=== PATIENT | female | born 1950 | race Caucasian/White ===

== ENCOUNTER 2019-08-12 14:09 | Emergency (ER) | payer MEDICAID ==
[~2019-08-12] VITALS: Ht 162.6 cm; Wt 80.3 kg
[2019-08-12 14:41] VITALS: BP 124/67
--- NOTE | 2019-08-12 14:57 | NUR ---
PATIENT AMBULATED WITH DAUGHTER TO WAIT AT [facility].
--- NOTE | 2019-08-12 15:30 | NUR ---
Dr. Shields evaluating pt at bedside
[2019-08-12] MEDS ORDERED: LORazepam 2 MG/ML VIAL IM ONE (15:40)
--- NOTE | 2019-08-12 16:06 | NUR ---
PT PRESENTS TO THE ED WITH C/O HEADACHE X 2 WEEKS. PT STATES PAIN IS "POUNDING" AND RATES PAIN 8/10 AT THIS TIME. PT STATES THAT SHE IS UNABLE TO SLEEP FOR 2 WEEKKS. PT DENIES N/V/D AT THIS TIME; SKIN IS PINK/WARM/DRY; PATIENT PRESENTS WITH A CLEAR SPEECH AND STEADY GAIT; PT DENIES ANY FEVER, CP, SOB, OR COUGH AT THIS TIME; PATIENT POSITIONED FOR COMFORT; HOB ELEVATED; BEDRAILS UP X1; BED DOWN IN LOWEST POSITION. FAMILY MEMBER AT BEDSIDE. HX: DM, HTN RX:METFORMIN, LISINOPRIL, LEVOTIYROXINE, JANUVIA, GLIPIZIDE, ATVORSTATIN, QUETI[place] NKA
--- NOTE | 2019-08-12 16:22 | NUR ---
PT RESTING IN BED WITH FAMILY MEMBER AT BEDSIDE WATCHING MOVIES ON CELL PHONE.
--- NOTE | 2019-08-12 16:25 | NUR ---
Dr. Shields is evaluating the patient at the bedside.
[2019-08-12 16:58] VITALS: BP 129/60
== END 2019-08-12 16:45 | disposition home or self-care (01) ==
LOC: MED 14:09
DX: G47.00 Insomnia, unspecified (principal); E11.9 Type 2 diabetes mellitus without complications; I10 Essential (primary) hypertension; E66.9 Obesity, unspecified
CPT/HCPCS: 81002; 81025; 96372; 99283; J2060

== ENCOUNTER 2022-03-14 10:29 | Emergency (ER) | payer MEDICAID ==
[~2022-03-14] VITALS: Ht 167.6 cm; Wt 82.6 kg
[2022-03-14 10:36] VITALS: BP 127/70
--- NOTE | 2022-03-14 10:42 | NUR ---
Patient ambulated with steady gait to bed 3.
--- NOTE | 2022-03-14 10:57 | NUR ---
PATIENT IN GOWN URINE OBTAINED. SIDE RAIL UP X1. PT GAIT STEADY
--- NOTE | 2022-03-14 11:48 | NUR ---
PT RESTING IN BED . SIDE RAILS UP X1 . RESP EVEN AND UNLABORED
[2022-03-14] MEDS ORDERED: DICYCLOMINE 20 MG/2 ML VIAL IM ONE (11:50)
--- NOTE | 2022-03-14 12:10 | NUR ---
LAB AT BEDSIDE-BLOOD SENT TO LAB
--- NOTE | 2022-03-14 12:11 | NUR ---
PT AMB TO [facility] W/O ASST-UA DONE
[2022-03-14 12:22] LABS: BASOPHILS % (AUTO) 0.7 % (0.0-2.0); EOSINOPHILS # (AUTO) 0.3 K/uL (0-0.4); EOSINOPHILS % (AUTO) 3.9 % (0.0-4.0); HEMATOCRIT 34.4 % (36-48); HEMOGLOBIN 11.2 g/dL (12.0-16.0); LYMPHOCYTES # (AUTO) 1.8 K/uL (2.5-16.5); LYMPHOCYTES % (AUTO) 27.8 % (20.5-51.1); MEAN CORPUSCULAR HEMOGLOBIN 29 pg (27-31); MEAN CORPUSCULAR HGB CONC 33 g/dL (33-37); MEAN CORPUSCULAR VOLUME 87.7 fL (80-94); MONOCYTES # (AUTO) 0.4 K/uL (0.8-1.0); MONOCYTES % (AUTO) 5.5 % (1.7-9.3); NEUTROPHILS % (AUTO) 62.1 % (42.2-75.2); PLATELET COUNT (AUTO) 179 K/uL (140-450); RED BLOOD CELL COUNT(AUTO) 3.92 MIL/uL (4.20-5.40); RED CELL DISTRIBUTION WIDTH 13.4 % (11.6-13.7); WHITE BLOOD COUNT (AUTO) 6.4 K/uL (4.8-10.8)
--- NOTE | 2022-03-14 12:30 | NUR ---
CRITICAL LAB GLUC [id number]
--- NOTE | 2022-03-14 12:43 | NUR ---
PT BACK FROM CT
--- NOTE | 2022-03-14 12:49 | NUR ---
DAUGHTER AT BEDSIDE
[2022-03-14 13:23] LABS: ALBUMIN 3.4 g/dL (3.4-5.0); ANION GAP 14.9 (8-16); ASPARTATE AMINOTRANSFERASE 34 U/L (15-37); CARBON DIOXIDE 25.4 mmol/L (21-32); CHLORIDE 103 mmol/L (98-107); LIPASE 184 U/L (73-393); POTASSIUM 4.3 mmol/L (3.5-5.1); SODIUM SERUM 139 mmol/L (136-145); TOTAL BILIRUBIN 0.3 mg/dL (0.0-1.0); UREA NITROGEN, BLOOD 17 mg/dL (7-18)
[2022-03-14 13:25] LABS: GLUCOSE 433 mg/dL (74-106)
[2022-03-14 13:31] LABS: APPEARANCE,URINE CLEAR (CLEAR); BILIRUBIN,URINE NEGATIVE (NEGATIVE); BLOOD, URINE NEGATIVE (NEGATIVE); COLOR,URINE YELLOW (YELLOW); LEUKOCYTE ESTERASE ,URINE NEGATIVE (NEGATIVE); NITRITE, URINE NEGATIVE (NEGATIVE); PH,URINE 6.5 (5.0-9.0); UGLUCOSE 3+ (NEGATIVE)
[2022-03-14 13:47] LABS: RBC,URINE 0-5 /HPF (0-5); WBC,URINE 0-5 /HPF (0-5)
[2022-03-14] MEDS ORDERED: BEN10 PO (14:00)
[2022-03-14 14:19] VITALS: BP 125/76
--- NOTE | 2022-03-14 14:19 | NUR ---
Patient discharged with v/s stable. Written and verbal after care instructions given and explained. Patient verbalized understanding. Ambulatory with steady gait. All questions addressed prior to discharge. Advised to follow up with PMD.
--- NOTE | 2022-03-14 14:20 | NUR ---
Chart checked and completed. The patient's care was reviewed and supervised by Suri Salas RN.
== END 2022-03-14 14:19 | disposition home or self-care (01) ==
LOC: MED 10:29
DX: R10.84 Generalized abdominal pain (principal); R19.7 Diarrhea, unspecified; E11.9 Type 2 diabetes mellitus without complications; E03.9 Hypothyroidism, unspecified; I10 Essential (primary) hypertension; Z98.890 Other specified postprocedural states
CPT/HCPCS: 36415; 74176; 80053; 81001; 83690; 85025; 96372; 99284; J0500

== ENCOUNTER 2023-06-02 17:20 | Inpatient (IN) | payer MEDICAID ==
[~2023-06-02] VITALS: Ht 162.6 cm; Wt 76.2 kg
[~2023-06-02 17:20] MED LIST: BEN10 PO
[2023-06-02 17:39] VITALS: BP 122/67; PULSE 90; RESP 17; TEMP 97.6; O2SAT 98
[2023-06-02 18:30] LABS: BASOPHILS # (AUTO) 0.1 K/uL (0.00-0.22); BASOPHILS % (AUTO) 1.4 % (0.0-2.0); EOSINOPHILS # (AUTO) 0.4 K/uL (0-0.4); EOSINOPHILS % (AUTO) 6.4 % (0.0-4.0); HEMATOCRIT 34.8 % (36-48); HEMOGLOBIN 11.3 g/dL (12.0-16.0); LYMPHOCYTES # (AUTO) 2.5 K/uL (2.5-16.5); LYMPHOCYTES % (AUTO) 37.1 % (20.5-51.1); MEAN CORPUSCULAR HEMOGLOBIN 28 pg (27-31); MEAN CORPUSCULAR HGB CONC 33 g/dL (33-37); MEAN CORPUSCULAR VOLUME 85.2 fL (80-94); MONOCYTES # (AUTO) 0.5 K/uL (0.8-1.0); MONOCYTES % (AUTO) 7.2 % (1.7-9.3); NEUTROPHILS # (AUTO) 3.2 K/uL (1.8-7.7); NEUTROPHILS % (AUTO) 47.9 % (42.2-75.2); PLATELET COUNT (AUTO) 180 K/uL (140-450); RED BLOOD CELL COUNT(AUTO) 4.08 MIL/uL (4.20-5.40); RED CELL DISTRIBUTION WIDTH 14.5 % (11.6-13.7); WHITE BLOOD COUNT (AUTO) 6.7 K/uL (4.8-10.8)
[2023-06-02 18:45] LABS: ALANINE AMINOTRANSFERASE 47 U/L (12-78); ALBUMIN 3.2 g/dL (3.4-5.0); ALKALINE PHOSPHATASE 93 U/L (50-136); ANION GAP 13.7 (8-16); ASPARTATE AMINOTRANSFERASE 40 U/L (15-37); CALCIUM 8.6 mg/dL (8.5-10.1); CARBON DIOXIDE 25.1 mmol/L (21-32); CHLORIDE 104 mmol/L (98-107); CREATININE 1.4 mg/dL (0.6-1.3); GLUCOSE 229 mg/dL (74-106); POTASSIUM 4.8 mmol/L (3.5-5.1); SODIUM SERUM 138 mmol/L (136-145); TOTAL BILIRUBIN 0.3 mg/dL (0.0-1.0); TOTAL PROTEIN, SERUM 7.2 g/dL (6.4-8.2); UREA NITROGEN, BLOOD 24 mg/dL (7-18)
[2023-06-02] MEDS ORDERED: KETOROLAC 15 MG/ML VIAL IVP ONE (18:50)
[2023-06-02] MEDS ORDERED: ASPIRIN 81 MG TAB.CHEW PO ONE (19:05)
[2023-06-02] MEDS ORDERED: NACL 0.9% 500 ML IV ONE (20:40)
[2023-06-02] MEDS ORDERED: LISI-486 PO (21:09)
[2023-06-02] MEDS ORDERED: QUET25TA PO (21:09)
[2023-06-02] MEDS ORDERED: EMPA10TA PO (21:09)
[2023-06-02] MEDS ORDERED: SYN.1 PO (21:09)
[2023-06-02] MEDS ORDERED: ATOR20TA40 PO (21:09)
[2023-06-02] MEDS ORDERED: GLIP10TE PO (21:09)
[2023-06-02] MEDS ORDERED: SITA100T8 PO (21:09)
[2023-06-02 21:26] VITALS: PULSE 83; RESP 18; O2SAT 99
[2023-06-02 21:38] VITALS: PULSE 84
[2023-06-02] MEDS ORDERED: DOCUSATE SODIUM 100 MG GELCAP PO PRN (21:50)
[2023-06-02] MEDS ORDERED: guaiFENesin DM 200/20 MG-10 ML 10 ML UDC PO PRN (21:50)
[2023-06-02] MEDS ORDERED: POTASSIUM CHLORIDE 10 MEQ TABER PO PRN (21:50)
[2023-06-02] MEDS ORDERED: ONDANSETRON 4 MG/2 ML VIAL IM/IVP PRN (21:50)
[2023-06-02] MEDS ORDERED: HYDROcodone/APAP 7.5/325 MG 1 TAB PO PRN (21:50)
[2023-06-02] MEDS ORDERED: NITROGLYCERIN 0.4 MG TAB SL PRN (21:55)
[2023-06-02] MEDS ORDERED: DEXTROSE 50% 50 ML SYR IVP PRN (22:20)
[2023-06-02 22:27] LABS: INR 1.05 (0.8-1.2); PARTIAL THROMBOPLASTIN TIME 25.1 secs (22-35.6)
[2023-06-02 22:38] LABS: CHOL/HDL RATIO 2.6 (1-4.5); FREE T4 (FREE THYROXINE) 0.93 ng/dL (0.76-1.46); MAGNESIUM 1.9 mg/dL (1.8-2.4); PHOSPHORUS 3.4 mg/dL (2.5-4.9); THYROID STIMULATING HORMONE 0.76 uIU/mL (0.34-3.74)
[2023-06-02] MEDS: NACL 0.9% 1,000 ML IV SCH (23:38)
[2023-06-02 23:57] VITALS: PULSE 93
[2023-06-03] VITALS (9 sets, daily range): BP systolic 99–130; BP diastolic 48–70; PULSE 74–85; RESP 16–18; TEMP 96.6–98.2; O2SAT 94–96
[2023-06-03] MEDS: ZOLPIDEM 5 MG TAB PO PRN ×2 (01:07→21:48)
[2023-06-03 06:20] LABS: BASOPHILS # (AUTO) 0.1 K/uL (0.00-0.22); EOSINOPHILS # (AUTO) 0.5 K/uL (0-0.4); EOSINOPHILS % (AUTO) 8.1 % (0.0-4.0); HEMATOCRIT 33.9 % (36-48); HEMOGLOBIN 11.3 g/dL (12.0-16.0); LYMPHOCYTES # (AUTO) 2.6 K/uL (2.5-16.5); LYMPHOCYTES % (AUTO) 42.8 % (20.5-51.1); MEAN CORPUSCULAR HEMOGLOBIN 29 pg (27-31); MEAN CORPUSCULAR HGB CONC 33 g/dL (33-37); MEAN CORPUSCULAR VOLUME 85.7 fL (80-94); MONOCYTES # (AUTO) 0.5 K/uL (0.8-1.0); NEUTROPHILS # (AUTO) 2.4 K/uL (1.8-7.7); NEUTROPHILS % (AUTO) 40.1 % (42.2-75.2); PLATELET COUNT (AUTO) 161 K/uL (140-450); RED BLOOD CELL COUNT(AUTO) 3.96 MIL/uL (4.20-5.40); RED CELL DISTRIBUTION WIDTH 14.1 % (11.6-13.7)
[2023-06-03] MEDS: BLOOD GLUCOSE MONITORING 1 DEV DEV FS SCH ×4 (06:36→20:14)
[2023-06-03 06:46] LABS: ANION GAP 9.8 (8-16); CALCIUM 8.5 mg/dL (8.5-10.1); CARBON DIOXIDE 26.2 mmol/L (21-32); CHLORIDE 108 mmol/L (98-107); CREATININE 1.1 mg/dL (0.6-1.3); GLUCOSE 150 mg/dL (74-106); SODIUM SERUM 140 mmol/L (136-145); UREA NITROGEN, BLOOD 22 mg/dL (7-18)
[2023-06-03] MEDS: glipiZIDE ER 5 MG TABER PO SCH (09:02)
[2023-06-03] MEDS: ECOTRIN 81 MG TABEC PO SCH (09:02)
[2023-06-03] MEDS: QUEtiapine FUMARATE 25 MG TAB PO SCH (09:02)
[2023-06-03] MEDS: ATORVASTATIN 20 MG TAB PO SCH (09:03)
[2023-06-03] MEDS: lisinopriL 10 MG TAB PO SCH (09:03)
[2023-06-03] MEDS: PANTOPRAZOLE 40 MG TABEC PO SCH (09:03)
[2023-06-03] MEDS: LEVOTHYROXINE 0.1 MG TAB PO SCH (09:04)
[2023-06-03] MEDS: INSULIN LISPRO SLIDING SCALE 100 UNITS/ML VIAL SUBQ PRN ×3 (11:44→20:12)
[2023-06-03 12:50] LABS: APPEARANCE,URINE CLEAR (CLEAR); BILIRUBIN,URINE NEGATIVE (NEGATIVE); BLOOD, URINE NEGATIVE (NEGATIVE); COLOR,URINE YELLOW (YELLOW); LEUKOCYTE ESTERASE ,URINE NEGATIVE (NEGATIVE); NITRITE, URINE NEGATIVE (NEGATIVE); PROTEIN,URINE NEGATIVE (NEGATIVE); UGLUCOSE 3+ (NEGATIVE); UROBILINOGEN,URINE 0.2 EU/dL (0.2 - 1)
[2023-06-03] MEDS: NACL 0.9% 1,000 ML IV SCH (16:04)
[2023-06-03] MEDS: ACETAMINOPHEN 325 MG TAB PO PRN (21:48)
[2023-06-04] VITALS (7 sets, daily range): BP systolic 100–117; BP diastolic 53–65; PULSE 66–107; RESP 18–19; TEMP 97.3–98.4; O2SAT 94–98
[2023-06-04] MEDS: NACL 0.9% 1,000 ML IV SCH ×2 (06:27→23:49)
[2023-06-04] MEDS: INSULIN LISPRO SLIDING SCALE 100 UNITS/ML VIAL SUBQ PRN ×4 (06:33→20:59)
[2023-06-04] MEDS: BLOOD GLUCOSE MONITORING 1 DEV DEV FS SCH ×4 (06:48→21:00)
[2023-06-04 06:57] LABS: BASOPHILS # (AUTO) 0.1 K/uL (0.00-0.22); BASOPHILS % (AUTO) 0.9 % (0.0-2.0); EOSINOPHILS # (AUTO) 0.5 K/uL (0-0.4); EOSINOPHILS % (AUTO) 7.4 % (0.0-4.0); HEMATOCRIT 32.9 % (36-48); HEMOGLOBIN 10.9 g/dL (12.0-16.0); LYMPHOCYTES # (AUTO) 2.5 K/uL (2.5-16.5); LYMPHOCYTES % (AUTO) 40.7 % (20.5-51.1); MEAN CORPUSCULAR HEMOGLOBIN 29 pg (27-31); MEAN CORPUSCULAR HGB CONC 33 g/dL (33-37); MEAN CORPUSCULAR VOLUME 85.8 fL (80-94); MONOCYTES # (AUTO) 0.5 K/uL (0.8-1.0); MONOCYTES % (AUTO) 8.6 % (1.7-9.3); NEUTROPHILS # (AUTO) 2.6 K/uL (1.8-7.7); NEUTROPHILS % (AUTO) 42.4 % (42.2-75.2); PLATELET COUNT (AUTO) 159 K/uL (140-450); RED BLOOD CELL COUNT(AUTO) 3.84 MIL/uL (4.20-5.40); RED CELL DISTRIBUTION WIDTH 14.3 % (11.6-13.7); WHITE BLOOD COUNT (AUTO) 6.1 K/uL (4.8-10.8)
[2023-06-04 07:11] LABS: ANION GAP 13.3 (8-16); CALCIUM 8.7 mg/dL (8.5-10.1); CARBON DIOXIDE 25.2 mmol/L (21-32); CHLORIDE 109 mmol/L (98-107); CREATININE 1.1 mg/dL (0.6-1.3); GLUCOSE 175 mg/dL (74-106); POTASSIUM 4.5 mmol/L (3.5-5.1); SODIUM SERUM 143 mmol/L (136-145); UREA NITROGEN, BLOOD 19 mg/dL (7-18)
[2023-06-04 08:06] LABS: T4 (THYROXINE) 7.1 ug/dL (4.5-12.0)
[2023-06-04] MEDS: ECOTRIN 81 MG TABEC PO SCH (08:56)
[2023-06-04] MEDS: PANTOPRAZOLE 40 MG TABEC PO SCH (08:56)
[2023-06-04] MEDS: ATORVASTATIN 20 MG TAB PO SCH (08:57)
[2023-06-04] MEDS: LEVOTHYROXINE 0.1 MG TAB PO SCH (08:57)
[2023-06-04] MEDS: lisinopriL 10 MG TAB PO SCH (08:57)
[2023-06-04] MEDS: glipiZIDE ER 5 MG TABER PO SCH (08:57)
[2023-06-04] MEDS: QUEtiapine FUMARATE 25 MG TAB PO SCH (08:58)
[2023-06-04 09:07] LABS: HEMOGLOBIN A1C 9.3 % (4.8-5.6)
[2023-06-04 16:22] LABS: URINE TPRO CREAT RATIO 0.1 (0-0.20)
[2023-06-04] MEDS: ZOLPIDEM 5 MG TAB PO PRN (20:56)
[2023-06-04] MEDS: ACETAMINOPHEN 325 MG TAB PO PRN (20:57)
[2023-06-05] VITALS: BP 93/57; PULSE 85; RESP 16; TEMP 97; O2SAT 95
[2023-06-05 00:22] VITALS: PULSE 82
[2023-06-05] MEDS: NACL 0.9% 1,000 ML IV SCH (02:44)
[2023-06-05 04:02] VITALS: BP 118/68; PULSE 79; RESP 19; TEMP 97.8; O2SAT 95
[2023-06-05 04:21] VITALS: PULSE 82; PULSE 85
[2023-06-05] MEDS: BLOOD GLUCOSE MONITORING 1 DEV DEV FS SCH (06:33)
[2023-06-05] MEDS: INSULIN LISPRO SLIDING SCALE 100 UNITS/ML VIAL SUBQ PRN (06:33)
[2023-06-05 06:42] LABS: BASOPHILS % (AUTO) 0.7 % (0.0-2.0); EOSINOPHILS # (AUTO) 0.5 K/uL (0-0.4); EOSINOPHILS % (AUTO) 7.9 % (0.0-4.0); HEMATOCRIT 33.6 % (36-48); HEMOGLOBIN 11.2 g/dL (12.0-16.0); LYMPHOCYTES # (AUTO) 2.5 K/uL (2.5-16.5); LYMPHOCYTES % (AUTO) 42.3 % (20.5-51.1); MEAN CORPUSCULAR HEMOGLOBIN 29 pg (27-31); MEAN CORPUSCULAR HGB CONC 34 g/dL (33-37); MEAN CORPUSCULAR VOLUME 85.4 fL (80-94); MONOCYTES # (AUTO) 0.5 K/uL (0.8-1.0); MONOCYTES % (AUTO) 7.9 % (1.7-9.3); NEUTROPHILS # (AUTO) 2.4 K/uL (1.8-7.7); NEUTROPHILS % (AUTO) 41.2 % (42.2-75.2); PLATELET COUNT (AUTO) 164 K/uL (140-450); RED BLOOD CELL COUNT(AUTO) 3.93 MIL/uL (4.20-5.40); RED CELL DISTRIBUTION WIDTH 14.5 % (11.6-13.7); WHITE BLOOD COUNT (AUTO) 5.9 K/uL (4.8-10.8)
[2023-06-05 07:04] LABS: ANION GAP 15.2 (8-16); CALCIUM 8.5 mg/dL (8.5-10.1); CHLORIDE 109 mmol/L (98-107); CREATININE 0.9 mg/dL (0.6-1.3); GLUCOSE 203 mg/dL (74-106); POTASSIUM 4.2 mmol/L (3.5-5.1); SODIUM SERUM 142 mmol/L (136-145); UREA NITROGEN, BLOOD 21 mg/dL (7-18)
[2023-06-05 08:00] VITALS: PULSE 67; RESP 18; O2SAT 99
[2023-06-05] MEDS ORDERED: ASPI81EC19 PO (08:24)
[2023-06-05] MEDS: glipiZIDE ER 5 MG TABER PO SCH (08:29)
[2023-06-05] MEDS: LEVOTHYROXINE 0.1 MG TAB PO SCH (08:29)
[2023-06-05] MEDS: ECOTRIN 81 MG TABEC PO SCH (08:30)
[2023-06-05] MEDS: ATORVASTATIN 20 MG TAB PO SCH (08:30)
[2023-06-05] MEDS: PANTOPRAZOLE 40 MG TABEC PO SCH (08:30)
[2023-06-05] MEDS: QUEtiapine FUMARATE 25 MG TAB PO SCH (08:31)
[2023-06-05] MEDS: lisinopriL 10 MG TAB PO SCH (08:31)
== END 2023-06-05 11:05 | disposition home or self-care (01) | DRG 203 ==
LOC: MED 17:20 → MTU 21:01
PROVIDERS: ADMIT Family Medicine; ATTEND Family Medicine
DX: M94.0 Chondrocostal junction syndrome [Tietze] (principal); N17.0 Acute kidney failure with tubular necrosis; E44.1 Mild protein-calorie malnutrition; I11.0 Hypertensive heart disease with heart failure; I95.9 Hypotension, unspecified; I50.9 Heart failure, unspecified; E11.65 Type 2 diabetes mellitus with hyperglycemia; E03.9 Hypothyroidism, unspecified; E78.5 Hyperlipidemia, unspecified; R74.01 Elevation of levels of liver transaminase levels; Z68.28 Body mass index [BMI] 28.0-28.9, adult
CPT/HCPCS: 36415; 71045; 76770; 80048; 80053; 81003; 82150; 82570; 82948; 83036; 83690; 83735; 83880; 84100; 84300; 84436; 84439; 84443; 84479; 84484; 85025; 85610; 85730; 87081; 93005; 99285; J1815; Q0092